=== PATIENT | female | born 1940 | race Caucasian/White ===

== ENCOUNTER 2018-06-01 13:11 | Emergency (ER) | payer OTHER ==
[~2018-06-01] VITALS: Ht 157.5 cm; Wt 93.0 kg
[~2018-06-01 13:11] MED LIST: AFRIN,GENASAL D15 ML BOTH NARES; ASPIR 8181 M1 PO; Antivert PO; Ativan PO; CELEBREX200 MG PO; CELEXA40 MG PO; DICLOXACILLIN500 MG PO; Dyazide, Maxzide 37. PO; ESCITALOPRAM OXA5 MG PO; Ecotrin PO; FLORASTOR250 MG PO; Feosol PO; OMEPRAZOLE40 M1 PO; SENOKOT S,PE1 TABLET PO; SIMVASTATIN40 MG PO; THERAGRAN1 TABLET PO; TOVIAZ8 MG PO; TRIAMTERENE-HC1 EACH PO; TUMS500 MG PO; TYLENOL EXTRA500 MG PO; Tums PO; ULTRAM50 MG PO; VITAMIN D1000 INTUN PO; Vicodin,Lortab 5/500 PO; WELLBUTRIN SR150 MG PO; Wellbutrin SR PO; Zocor PO
[2018-06-01 16:43] VITALS: BP 145/94
== END 2018-06-01 16:44 | disposition home or self-care (01) ==
LOC: EME 13:11
PROC: 3E0234Z Introduction of Serum, Toxoid and Vaccine into Muscle, Percutaneous Approach (ICD-10-PCS; principal; 2018-06-01)
PROC: 0HQ0XZZ Repair Scalp Skin, External Approach (ICD-10-PCS; principal; 2018-06-01)
DX: S01.01XA Laceration without foreign body of scalp, initial encounter (principal); W18.30XA Fall on same level, unspecified, initial encounter; Y92.480 Sidewalk as the place of occurrence of the external cause; Z23 Encounter for immunization; E78.5 Hyperlipidemia, unspecified; F41.9 Anxiety disorder, unspecified; I10 Essential (primary) hypertension; Z96.653 Presence of artificial knee joint, bilateral; Z79.82 Long term (current) use of aspirin
CPT/HCPCS: 70450; 99281; 99284